=== PATIENT | female | born 1965 | race Caucasian/White ===

== ENCOUNTER → 2017-05-13 | Outpatient (CLI) | payer OTHER | LOC: FIMAGING 08:15 | PROVIDERS: ATTEND Internal Medicine Endocrinology, Diabetes & Metabolism | DX: E05.90 Thyrotoxicosis, unspecified without thyrotoxic crisis or storm (principal); E07.9 Disorder of thyroid, unspecified | CPT/HCPCS: 78014; A9516 ==

== ENCOUNTER → 2017-06-10 | Outpatient (CLI) | payer OTHER | LOC: FIMAGING 14:48 | PROVIDERS: ATTEND Internal Medicine Endocrinology, Diabetes & Metabolism | PROC: CW7 Nuclear Medicine, Anatomical Regions, Systemic Nuclear Medicine Therapy (ICD-10-PCS; principal; 2017-06-10) | DX: E05.90 Thyrotoxicosis, unspecified without thyrotoxic crisis or storm (principal) | CPT/HCPCS: 79005; A9517 ==